=== PATIENT | female | born 1955 | race Caucasian/White ===

== ENCOUNTER 2018-11-20 14:39 | Outpatient (RCR) | payer OTHER, SELFPAY | END 2018-12-06 23:59 | disposition home or self-care (01) | LOC: CR 14:39 | PROVIDERS: PCP Nurse Practitioner; Visit Provider Family Medicine | DX: I25.2 Old myocardial infarction (principal); Z51.89 Encounter for other specified aftercare ==

== ENCOUNTER 2018-12-17 01:55 | Outpatient (CLI) | payer OTHER, SELFPAY ==
--- NOTE | 2018-12-17 11:51 | DI.US_ITS ---
SYMPTOMS/DIAGNOSIS: LEFT CAROTID BRUIT, R09.89 CAROTID ULTRASOUND: Routine examination. On the right, mild plaque is seen in the bulb/external carotid artery/internal carotid artery junction. No hemodynamically significant velocity elevations are present on the right. The right vertebral artery is antegrade. On the left, there is a small amount of calcific plaque seen in the carotid bulb. No hemodynamically significant velocity elevations are present. The left vertebral artery is antegrade. IMPRESSION: No evidence of hemodynamically significant cervical carotid artery stenosis.
== END 2018-12-17 02:15 ==
PROVIDERS: PCP Nurse Practitioner; Visit Provider Nurse Practitioner Family
DX: R09.89 Other specified symptoms and signs involving the circulatory and respiratory systems (principal)
CPT/HCPCS: 93880

== ENCOUNTER 2019-01-04 12:53 | Outpatient (RCR) | payer OTHER, SELFPAY | END 2019-01-06 23:59 | disposition home or self-care (01) | LOC: CR 12:53 | PROVIDERS: PCP Nurse Practitioner; Visit Provider Family Medicine | DX: I25.2 Old myocardial infarction (principal); Z51.89 Encounter for other specified aftercare | CPT/HCPCS: S9472 ==

== ENCOUNTER 2019-02-04 10:00 | Outpatient (RCR) | payer OTHER, SELFPAY | END 2019-02-05 23:59 | disposition home or self-care (01) | LOC: CR 10:00 | PROVIDERS: PCP Nurse Practitioner; Visit Provider Family Medicine | DX: I25.2 Old myocardial infarction (principal); Z51.89 Encounter for other specified aftercare | CPT/HCPCS: S9472 ==

== ENCOUNTER 2019-03-06 07:00 | Outpatient (RCR) | payer OTHER, SELFPAY | END 2019-03-08 23:59 | disposition home or self-care (01) | LOC: CR 07:00 | PROVIDERS: PCP Nurse Practitioner; Visit Provider Family Medicine | DX: I25.2 Old myocardial infarction (principal); Z51.89 Encounter for other specified aftercare | CPT/HCPCS: S9472 ==

== ENCOUNTER 2019-03-25 09:00 | Outpatient (RCR) | payer OTHER, SELFPAY | END 2019-04-07 23:59 | disposition home or self-care (01) | LOC: CR 09:00 | PROVIDERS: PCP Nurse Practitioner; Visit Provider Family Medicine | DX: I25.2 Old myocardial infarction (principal); Z51.89 Encounter for other specified aftercare | CPT/HCPCS: S9472 ==

== ENCOUNTER 2019-06-29 00:41 | Outpatient (CLI) | payer OTHER, SELFPAY ==
[2019-06-29 11:22] LABS: ALT 21 U/L (14-59); AST 12 U/L (15-37); Albumin 3.6 g/dL (3.4-5.0); Alkaline Phosphatase 103 U/L (46-116); Bilirubin, Direct 0.11 mg/dL (0.00-0.20); Bilirubin, Total 0.4 mg/dL (0.2-1.0); Total Protein 7.4 g/dL (6.4-8.2)
[2019-06-29 11:34] LABS: Calculated LDL 22 mg/dL; Cholesterol 89 mg/dL (50-200); HDL Cholesterol 46 mg/dL (40-60); Triglyceride 105 mg/dL (30-150)
== END 2019-06-29 01:01 ==
PROVIDERS: PCP Nurse Practitioner; Visit Provider Nurse Practitioner Family
DX: E78.2 Mixed hyperlipidemia (principal)
CPT/HCPCS: 36415; 80061; 80076

== ENCOUNTER 2019-07-10 07:22 | Outpatient (CLI) | payer OTHER, SELFPAY ==
--- NOTE | 2019-07-10 09:53 | DI.US_ITS ---
EXAM: US CAROTID CLINICAL HISTORY: R09.89 LT CAROTID BRUIT, HX OF CAD, HTN, HLD. TECHNIQUE: Ultrasound carotids performed using grayscale, color-flow, and spectral Doppler imaging. COMPARISON: US carotid from 12/17/2018 FINDINGS: RIGHT CAROTID ARTERY: Plaque: Minimal. Velocity elevation: None. LEFT CAROTID ARTERY: Plaque: Mild calcific plaque in the left carotid bulb. Velocity elevation: None. VERTEBRAL ARTERIES: Antegrade flow. IMPRESSION: No evidence for hemodynamically significant carotid stenosis. Criteria for Carotid Stenosis: Normal: ICA PSV <125 cm/s no plaque or intimal thickening is visible. <50% stenosis: ICA PSV <125 cm/s and plaque or intimal thickening is visible. 50-69% stenosis: ICA PSV is 125-250 cm/s and plaque is visible. >70% stenosis to near occlusion: ICA PSV >250 cm/s with visible plaque and luminal narrowing.
== END 2019-07-10 07:42 ==
PROVIDERS: PCP Nurse Practitioner; Visit Provider Nurse Practitioner Family
DX: R09.89 Other specified symptoms and signs involving the circulatory and respiratory systems (principal); I25.10 Atherosclerotic heart disease of native coronary artery without angina pectoris; I10 Essential (primary) hypertension; E78.5 Hyperlipidemia, unspecified
CPT/HCPCS: 93880

== ENCOUNTER 2019-10-21 17:21 | Outpatient (REF) | payer OTHER, SELFPAY ==
[2019-10-21 18:43] LABS: Microalb ug/mg Crea 6.5 ug/mg Cr
== END 2019-10-21 17:41 ==
LOC: NCHCN 17:21
PROVIDERS: PCP Nurse Practitioner; Visit Provider Nurse Practitioner
DX: E11.9 Type 2 diabetes mellitus without complications (principal)
CPT/HCPCS: 82043; 82570

== ENCOUNTER 2019-12-20 02:05 | Outpatient (CLI) | payer OTHER, SELFPAY ==
--- NOTE | 2019-12-20 15:27 | DI.MAMMO_ITS ---
EXAM: MG MAMMO SCREENING CLINICAL HISTORY: SCREENING, Z12.39 TECHNIQUE: Bilateral full field digital CC and MLO mammographic images were obtained with 3D tomosyn thesis and utilizing computer aided detection (CAD). COMPARISON: Available for comparison. FINDINGS: Masses/Architectural Distortion: None seen. Microcalcifications: No suspicious pleomorphic-type are seen. Skin Thickening/Nipple Retraction: None. IMPRESSION: 1. No significant interval change with no specific features of malignancy noted. 2. Unless there is more urgent need, screening mammography is recommended, as per [employer] guidelines. BI-RADS Cat 1 - Negative Breast Density - Category B - Scattered areas of fibroglandular density A negative radiographic report should not delay biopsy if a dominant or clinically suspicious mass is present. Up to ten percent of cancers are not identified on mammography. A negative report may reinforce clinical impression. Adenosis and dense breasts may obscure an underlying neoplasm. False positive reports average 6 to 10%. Patient will receive a letter notifying them of these results.
== END 2019-12-20 02:25 ==
PROVIDERS: PCP Nurse Practitioner; Visit Provider Nurse Practitioner
DX: Z12.31 Encounter for screening mammogram for malignant neoplasm of breast (principal)
CPT/HCPCS: 77063; 77067

== ENCOUNTER 2020-04-20 17:43 | Outpatient (REF) | payer OTHER, SELFPAY ==
[2020-04-20 19:33] LABS: ALT 28 U/L (14-59); AST 15 U/L (15-37); Albumin 4.1 g/dL (3.4-5.0); Alkaline Phosphatase 99 U/L (46-116); Anion Gap 11.4 mmol/L (3-11); BUN 12 mg/dL (7-18); Bilirubin, Total 0.5 mg/dL (0.2-1.0); CO2 25.6 mmol/L (21.0-32.0); CREATININE 0.65 mg/dL (0.55-1.02); Calcium 9.8 mg/dL (8.5-10.1); Calculated LDL 33 mg/dL (<100); Chloride 102 mmol/L (98-107); Cholesterol 116 mg/dL (<200); Glucose 86 mg/dL (74-106); HDL Cholesterol 43 mg/dL (40-60); Potassium 4.4 mmol/L (3.5-5.1); Sodium 139 mmol/L (136-145); Total Protein 7.9 g/dL (6.4-8.2); Triglyceride 200 mg/dL (<150)
[2020-04-20 19:42] LABS: Hemoglobin A1C 6.6 % (3.8-5.6)
== END 2020-04-20 18:03 ==
LOC: NCHCN 17:43
PROVIDERS: PCP Nurse Practitioner; Visit Provider Nurse Practitioner
DX: I10 Essential (primary) hypertension (principal); E78.5 Hyperlipidemia, unspecified; E11.9 Type 2 diabetes mellitus without complications
CPT/HCPCS: 80053; 80061; 83036

== ENCOUNTER 2020-08-11 14:04 | Outpatient (CLI) | payer OTHER, SELFPAY ==
--- NOTE | 2020-08-11 13:45 | DI.RAD_ITS ---
EXAM: XR SHOULDER RT COMPLETE 2+V CLINICAL HISTORY: Shoulder pain. TECHNIQUE: 2D digital imaging was performed. COMPARISON: No exams were available for comparison FINDINGS: BONES: No acute fracture is present. No bony destructive lesion is seen. JOINTS: No dislocation present. Mild degenerative changes are seen at the glenohumeral and acromiocla vicular joints. SOFT TISSUE: Normal. IMPRESSION: Mild degenerative changes of the right shoulder. DATA REPOSITORY: RADIATION DOSE DELIVERED:
== END 2020-08-11 14:24 ==
PROVIDERS: PCP Nurse Practitioner; Referring Provider Nurse Practitioner; Visit Provider Student in an Organized Health Care Education/Training Program
DX: M19.011 Primary osteoarthritis, right shoulder (principal)
CPT/HCPCS: 73030

== ENCOUNTER 2020-12-07 16:09 | Outpatient (REF) | payer OTHER, SELFPAY ==
[2020-12-07 19:37] LABS: COMMENT (LAB VIEW ONLY) 59.25 mg/dL; Microalb ug/mg Crea 9.1 ug/mg Cr
== END 2020-12-07 16:10 | disposition home or self-care (01) ==
LOC: NCHCN 16:09
PROVIDERS: PCP Nurse Practitioner; Visit Provider Nurse Practitioner
DX: E11.9 Type 2 diabetes mellitus without complications (principal)
CPT/HCPCS: 82043; 82570

== ENCOUNTER 2021-05-28 02:36 | Outpatient (CLI) | payer OTHER, SELFPAY ==
[2021-05-28 10:51] LABS: Calculated LDL 21 mg/dL (<100); Cholesterol 97 mg/dL (<200); HDL Cholesterol 41 mg/dL (40-60); Triglyceride 175 mg/dL (<150)
== END 2021-05-28 02:37 | disposition home or self-care (01) ==
LOC: LBO 02:36
PROVIDERS: PCP Nurse Practitioner; Visit Provider Nurse Practitioner Family
DX: E78.2 Mixed hyperlipidemia (principal)
CPT/HCPCS: 36415; 80061

== ENCOUNTER 2021-12-15 04:24 | Outpatient (CLI) | payer OTHER, SELFPAY ==
[2021-12-15 11:04] LABS: ALT 33 U/L (14-59); AST 16 U/L (15-37); Albumin 3.5 g/dL (3.4-5.0); Alkaline Phosphatase 110 U/L (46-116); Bilirubin, Direct 0.1 mg/dL (0.0-0.2); Bilirubin, Total 0.3 mg/dL (0.2-1.0); Total Protein 7.5 g/dL (6.4-8.2)
[2021-12-15 11:17] LABS: Calculated LDL 41 mg/dL (<100); Cholesterol 126 mg/dL (<200); HDL Cholesterol 41 mg/dL (40-60); Triglyceride 223 mg/dL (<150)
== END 2021-12-15 04:25 | disposition home or self-care (01) ==
LOC: LBO 04:24
PROVIDERS: PCP Nurse Practitioner; Visit Provider Nurse Practitioner Family
DX: E78.2 Mixed hyperlipidemia (principal)
CPT/HCPCS: 36415; 80061; 80076

== ENCOUNTER 2022-02-08 17:40 | Outpatient (REF) | payer OTHER, SELFPAY ==
[2022-02-08 17:52] LABS: Abs Immature Grans 0.04 10^3/uL (0.0-0.06); Absolute Basophil Count 0.04 10^3/uL (0.0-0.2); Absolute Eosinophil Count 0.27 10^3/uL (0.0-0.7); Absolute Lymphocyte Count 1.79 10^3/uL (1.2-3.4); Absolute Neutrophil Count 8.08 10^3/uL (1.2-6.7); Basophils % 0.4; Eosinophils % 2.5; HCT 42.7 % (36.0-46.0); HGB 13.5 g/dL (11.2-15.7); Immature Grans % 0.4; Lymphocytes % 16.4; MCH 28.2 pg (27.0-33.0); MCHC 31.6 % (32.0-36.0); MCV 89 fL (80-95); MPV 10.9 fL (8.0-11.0); Monocytes % 6.4; Neutrophils % 73.9; Platelet Count 343 10^3/uL (130-400); RBC 4.79 10^6/uL (3.93-5.22); RDW-SD 45.5 fL; WBC 10.93 10^3/uL (4.4-10.8)
[2022-02-08 19:16] LABS: ALT 28 U/L (14-59); AST 17 U/L (15-37); Albumin 3.7 g/dL (3.4-5.0); Alkaline Phosphatase 111 U/L (46-116); Anion Gap 8.3 mmol/L (3-11); BUN 12 mg/dL (7-18); Bilirubin, Total 0.4 mg/dL (0.2-1.0); CO2 29.7 mmol/L (21.0-32.0); CREATININE 0.9 mg/dL (0.55-1.02); Calcium 9.1 mg/dL (8.5-10.1); Chloride 101 mmol/L (98-107); Glucose 173 mg/dL (74-106); Potassium 4.5 mmol/L (3.5-5.1); Sodium 139 mmol/L (136-145); Total Protein 7.7 g/dL (6.4-8.2)
== END 2022-02-08 17:41 | disposition home or self-care (01) ==
LOC: LBN 17:40
PROVIDERS: PCP Nurse Practitioner; Visit Provider Nurse Practitioner Family
DX: I10 Essential (primary) hypertension (principal); E78.5 Hyperlipidemia, unspecified; E11.9 Type 2 diabetes mellitus without complications; Z00.00 Encounter for general adult medical examination without abnormal findings
CPT/HCPCS: 80053; 85025

== ENCOUNTER → 2022-08-08 01:49 | Outpatient (CLI) | payer MEDICARE, SELFPAY ==
--- NOTE | 2022-08-08 | DI.MAMMO_ITS ---
Exam(s) MAMMO SCREENING EXAM: MAMMO SCREENING CLINICAL HISTORY: SCREENING, Z12.39. TECHNIQUE: Bilateral full field digital CC and MLO mammographic images were obtained with 3D tomosyn thesis and utilizing computer aided detection (CAD). COMPARISON: Prior mammograms were reviewed. FINDINGS: No new findings in the right breast. Asymmetric densities anterior in left breast are unchanged from prior studies. There are no new spiculated masses nor malignant appearing microcalcification groups. There is no significant architectural distortion nor skin thickening-retraction. IMPRESSION: No radiographic evidence of malignancy. BI-RADS Category 1 - Negative Breast Density - Category B - Scattered areas of fibroglandular density Breast density Category C or D implies that the patient has dense breast tissue. Dense breast tissue can make it harder to find cancer on a mammogram. Dense breast tissue is also associated with an incr eased risk of breast cancer. This information about the result of the mammogram report was provided to the patient to raise their awareness. Use this report when you speak with the patient about their risks for breast cancer, which includes their family history. At that time, you may recommend additional screening tests (Ultrasoun d or MRI) as these tests may add significant information. A negative radiographic report should not delay biopsy if a dominant or clinically suspicious mass is present. Up to ten percent of cancers are not identified on mammography. A negative report may reinforce clinical impression. Adenosis and dense breasts may obscure an underlying neoplasm. False positive reports average 6 to 10%. Patient will receive a letter notifying them of these results.
== END ==
PROVIDERS: PCP Nurse Practitioner; Visit Provider Nurse Practitioner Family
DX: Z12.31 Encounter for screening mammogram for malignant neoplasm of breast (principal); N60.82 Other benign mammary dysplasias of left breast
CPT/HCPCS: 77063; 77067

== ENCOUNTER 2023-08-02 19:32 | Outpatient (REF) | payer MEDICARE, SELFPAY ==
[2023-08-02 19:50] LABS: Abs Immature Grans 0.04 10^3/uL (0.0-0.06); Absolute Basophil Count 0.04 10^3/uL (0.0-0.2); Absolute Eosinophil Count 0.14 10^3/uL (0.0-0.7); Absolute Lymphocyte Count 1.35 10^3/uL (1.2-3.4); Absolute Monocyte Count 0.45 10^3/uL (0.1-0.8); Absolute Neutrophil Count 5.22 10^3/uL (1.2-6.7); Basophils % 0.6; Eosinophils % 1.9; HCT 43.3 % (36.0-46.0); HGB 14.3 g/dL (11.2-15.7); Immature Grans % 0.6; Lymphocytes % 18.6; MCH 29.1 pg (27.0-33.0); MCV 88 fL (80-95); MPV 10.2 fL (8.0-11.0); Monocytes % 6.2; Neutrophils % 72.1; Platelet Count 355 10^3/uL (130-400); RBC 4.92 10^6/uL (3.93-5.22); RDW 13.1 % (11.7-14.6); RDW-SD 41.8 fL; WBC 7.24 10^3/uL (4.4-10.8)
[2023-08-02 20:18] LABS: ALT 62 U/L (14-59); AST 38 U/L (15-37); Albumin 3.8 g/dL (3.4-5.0); Alkaline Phosphatase 123 U/L (46-116); Anion Gap 11.3 mmol/L (3-11); BUN 10 mg/dL (7-18); Bilirubin, Total 0.3 mg/dL (0.2-1.0); CO2 24.7 mmol/L (21.0-32.0); CREATININE 0.8 mg/dL (0.55-1.02); Calcium 9.4 mg/dL (8.5-10.1); Chloride 100 mmol/L (98-107); Cholesterol 295 mg/dL (<200); Estimated GFR 80.71 (mL/min/1.73m2); Glucose 266 mg/dL (74-106); HDL Cholesterol 52 mg/dL (40-60); Potassium 4.3 mmol/L (3.5-5.1); Sodium 136 mmol/L (136-145); TSH (W/Ref FT4) 1.94 uIU/mL (0.36-3.74); Total Protein 8.5 g/dL (6.4-8.2); Triglyceride 556 mg/dL (<150)
[2023-08-02 20:29] LABS: LDL CHOLESTEROL 77 mg/dL (<100)
== END 2023-08-02 19:33 | disposition home or self-care (01) ==
LOC: NCHCN 19:32
PROVIDERS: PCP Nurse Practitioner; Visit Provider Nurse Practitioner Family
DX: E11.9 Type 2 diabetes mellitus without complications (principal); I10 Essential (primary) hypertension; E78.5 Hyperlipidemia, unspecified
CPT/HCPCS: 80053; 80061; 83721; 84443; 85025

== ENCOUNTER 2023-09-03 15:33 | Emergency (ER) | payer MEDICARE, SELFPAY ==
[2023-09-03] VITALS (39 sets, daily range): BP systolic 87–147; BP diastolic 24–78; PULSE 69–102; RESP 8–27; TEMP 36.5; O2SAT 93–97
--- NOTE | 2023-09-03 15:30 | RT.EKG_ITS ---
APPROVED REPORT Exam: Resting ECG Reason for Exam: chest pain Patient Location: E HR:91 bpm ECG Measurements Heart Rate 91 AXIS OR 178 P 18 QRSd 82 QRS 5 QT 344 T 30 QTc 425 Conclusion Sinus rhythm...normal P axis, V-rate 60- 99 Inferior infarct, old...Q >35mS, II III aVF Narrow complex normal sinus rhythm at a rate of 91. Normal axis. Intervals within normal limits. T wave flattening in aVL and inferior leads. Poor R wave progression. No prior for comparison. No a cute injury pattern.
--- NOTE | 2023-09-03 15:45 | DI.RAD_ITS ---
Exam(s) XR CHEST 2V PA LATERAL EXAM: XR CHEST 2V PA LATERAL CLINICAL HISTORY: epigastric/chest pain TECHNIQUE: 2D digital imaging was performed of the chest. Two images were obtained. PA and lateral views were obtained. COMPARISON: No exams were available for comparison FINDINGS: MEDIASTINUM: Normal. HEART: Normal. PULMONARY VASCULATURE: Normal. LUNGS: Clear. PLEURAL SPACE: No pleural effusion or pneumothorax. BONE:Within normal limits for the patient's age. OTHER FINDINGS:Normal. IMPRESSION: No acute pulmonary findings. DATA REPOSITORY: RADIATION DOSE DELIVERED:
--- NOTE | 2023-09-03 15:57 | ED.GENADUL_ITS ---
Discharge Plan Disposition Patient Disposition: Home Condition: Improving Discharge Details Chief Complaint: Chest/Rib Clinical Impression: Epigastric abdominal pain Primary Care Provider: Katelynn Hayes ED Provider: Carl Hector Home Meds and New Rx's Prescriptions: No Action metoprolol succinate 50 mg tablet extended release 24 hr 50 mg PO DAILY ergocalciferol (vitamin D2) 400 UNIT tablet 800 units PO DAILY amlodipine [Norvasc] 5 MG tablet 10 mg PO DAILY aspirin [Aspir-81] 81 MG tablet,delayed release (DR/EC) 81 mg PO DAILY fish oil-dha-epa 1 EACH capsule 1 ea PO DAILY metformin 500 mg tablet 500 mg PO BID metformin 500 mg tablet extended release 24 hr 1,000 mg PO 2XD Patient Comments: TAKE 2 TABLET BY MOUTH TWICE DAILY Ozempic 0.25 mg or 0.5 mg (2 mg/3 mL) pen injector 0.25 mg SUBCUT .COMPLEX Rx Instructions: 0.25 mg subcutaneously once a week (monday); atorvastatin 40 mg tablet 40 mg PO DAILY Patient Comments: TAKE 1 TABLET BY MOUTH EVERY NIGHT Discharge Instructions Instructions: Epigastric Pain (ED) Additional Instructions: Please follow-up closely with your primary care physician. Return to the emergency department for any worsening symptoms. Medical Decision Making 68-year-old female history of diabetes obesity hypertension hyperlipidemia presents with epigastric abdominal discomfort since Thanksgiving believes she may have eaten a large piece of turkey with a bone inside, has foreign body sensation in lower esophagus, no nausea no vomiting however has had to eat smaller solid food since this event is able to tolerate liquids, no regurgitation or vomiting. No respiratory symptoms. No radiation of discomfort. Nonexertional in nature. Afebrile nontoxic mildly tachycardic on arrival likely related to discomfort. EKG normal sinus rhythm nonischemic. Consider esophageal foreign body versus ACS versus gastritis versus gas versus enteritis lower suspicion for esophageal perforation or intestinal perforation given history and physical. Will obtain screening labs troponin EKG chest x-ray trial of effervescent solution and Zofran. Will load with aspirin. Close reassessment 18: 43 patient was comfortably feeling better after effervescent bubbles. No further chest pain labs and imaging unremarkable. Patient will follow-up with her primary care physician. Given strict return precautions HPI General Date/Time Provider Initiated Documentation: 09/03/23 15:38 . HPI Narrative: 68-year-old female history of obesity diabetes hyperlipidemia hypertension presents with epigastric and anterior chest discomfort that began immediately after eating a large piece of turkey on Thanksgiving, believes she may have eaten a bone; no shortness of breath fever cough chills or radiation of discomfort. Has been able to eat and drink since then however must eat smaller bites than normal. Related Data Home Medications Medication Instructions Recorded Confirmed amlodipine 5 mg tablet (Norvasc) 10 mg PO DAILY 01/30/17 09/03/23 aspirin 81 mg tablet,delayed 81 mg PO DAILY 01/30/17 09/03/23 release (Aspir-) ergocalciferol (vitamin D2) 10 mcg 800 units PO DAILY 01/30/17 09/03/23 (400 unit) tablet fish oil-dha-epa 1,200 mg-144 1 ea PO DAILY 01/30/17 09/03/23 mg-216 mg capsule metformin 500 mg tablet 500 mg PO BID 08/11/20 09/03/23 metoprolol succinate 50 mg 50 mg PO DAILY 08/11/20 09/03/23 tablet,extended release 24 hr atorvastatin 40 mg tablet 40 mg PO DAILY 09/03/23 09/03/23 metformin 500 mg tablet,extended 1,000 mg PO 2XD 09/03/23 09/03/23 release 24 hr semaglutide 0.25 mg or 0.5 mg (2 0.25 mg subcut .COMPLEX 09/03/23 09/03/23 mg/3 mL) subcutaneous pen injector (Ozempic) Allergies Allergy/AdvReac Type Severity Reaction Status Date / Time feathers Allergy Verified 09/03/23 16:09 house dust Allergy Verified 09/03/23 16:09 General Stated Complaint: Chest/Rib MIKE: 3 Review of Systems Narrative: Review of Systems Constitutional: negative Eyes: negative ENT: negative Cardiovascular: negative Respiratory: negative Gastrointestinal: Epigastric discomfort : negative Musculoskeletal: negative Skin: negative Neurologic: negative Psych: negative PFSH All Active Problems (Updated 09/03/23 @ 18:44 by Carl Hector MD) Epigastric abdominal pain (Acute) Right rotator cuff tendinitis (Acute) Impingement syndrome of right shoulder (Acute) Bursitis of right shoulder (Acute ~10/2018) Medical History (Updated 09/03/23 @ 18:44 by Carl Hector MD) Obesity Hypertension Hyperlipemia Diabetes Palpitation Diverticular disease Surgical History (Updated 07/25/18 @ 14:[address] [facility] [address]) section x 2 Appendectomy Social History Smoking/Tobacco Use Status: Never Smoking risk assessment performed?: Yes Alcohol Intake: never Substance use type: does not use Current gender identity: female Do you feel safe at home: Yes Do you feel safe in your relationship?: Yes Exam Narrative Exam Narrative: Physical Examination General: alert, awake, cooperative, resting comfortably, no acute distress HEENT: normocephalic, atraumatic; PERRL, EOM intact, conjunctiva normal; no nasal discharge; moist mucous membranes, oral and pharyngeal mucosa normal, tolerating secretions Neck: supple, trachea midline; full ROM Chest: normal to inspection Respiratory: normal respiratory effort, speaking in full sentences, clear to auscultation, no wheezing, rales or rhonchi Cardiac: regular rate, regular rhythm, S1S2 intact, no murmurs rubs or gallops GI: abdomen soft, non-tender, non-distended; no palpable mass or hepatosplenomegaly Skin: no lesions, rashes or trauma appreciated Neuro: AAOx3, normal speech, moving all extremities Psych: Appropriate mood and affect Course Vital Signs Vital signs: Vital Signs Temperature 36.5 C 09/03/23 15:38 Pulse 102 H 09/03/23 15:38 Respiratory Rate 18 09/03/23 15:38 Blood Pressure 113/78 09/03/23 15:38 Pulse Oximetry 97 09/03/23 15:38 Temperature 36.5 C 09/03/23 15:38 Temperature Source Temporal Artery Scan 09/03/23 15:38 Pulse 102 H 09/03/23 15:38 Respiratory Rate 18 09/03/23 15:38 Respiratory Effort Normal 09/03/23 15:43 Blood Pressure 113/78 09/03/23 15:38 Pulse Oximetry 97 09/03/23 15:38 Oxygen Delivery Method Room Air 09/03/23 15:38 Oxygen Flow Rate 0 09/03/23 15:38 Pain Level 2 09/03/23 15:38
[2023-09-03] MEDS: Ondansetron 4 MG/2 ML VIAL IVP (15:59)
[2023-09-03] MEDS: Aspirin 81 MG CHEW 324 MG CH (15:59)
[2023-09-03] MEDS: Normal Saline 500 ML 1000 ML IV (15:59)
[2023-09-03 16:02] LABS: Abs Immature Grans 0.04 10^3/uL (0.0-0.06); Absolute Basophil Count 0.04 10^3/uL (0.0-0.2); Absolute Eosinophil Count 0.09 10^3/uL (0.0-0.7); Absolute Lymphocyte Count 1.13 10^3/uL (1.2-3.4); Absolute Monocyte Count 0.95 10^3/uL (0.1-0.8); Absolute Neutrophil Count 9.51 10^3/uL (1.2-6.7); Basophils % 0.3; Eosinophils % 0.8; HCT 43.1 % (36.0-46.0); HGB 14.5 g/dL (11.2-15.7); Immature Grans % 0.3; Lymphocytes % 9.6; MCH 29.3 pg (27.0-33.0); MCHC 33.6 % (32.0-36.0); MCV 87 fL (80-95); MPV 9.4 fL (8.0-11.0); Monocytes % 8.1; Neutrophils % 80.9; Platelet Count 276 10^3/uL (130-400); RBC 4.95 10^6/uL (3.93-5.22); RDW 13.3 % (11.7-14.6); RDW-SD 41.9 fL; WBC 11.76 10^3/uL (4.4-10.8)
[2023-09-03 16:14] LABS: Lipase 41 U/L (16-77)
[2023-09-03 16:16] LABS: PTT Activated 27.5 sec (23.6-32.8); Prothrombin Time 10.4 sec (9.1-11.1)
[2023-09-03 16:23] LABS: ALT 30 U/L (14-59); AST 17 U/L (15-37); Albumin 3.6 g/dL (3.4-5.0); Alkaline Phosphatase 101 U/L (46-116); Anion Gap 10.4 mmol/L (3-11); BUN 9 mg/dL (7-18); Bilirubin, Total 0.7 mg/dL (0.2-1.0); CO2 26.6 mmol/L (21.0-32.0); CREATININE 0.9 mg/dL (0.55-1.02); Calcium 9.8 mg/dL (8.5-10.1); Chloride 98 mmol/L (98-107); Estimated GFR 70.07 (mL/min/1.73m2); Glucose 173 mg/dL (74-106); Sodium 135 mmol/L (136-145); Total Protein 8.9 g/dL (6.4-8.2); Troponin I < 50 ng/L (<or=60)
--- NOTE | 2023-09-03 16:53 | DI.VRAD_ITS ---
PROCEDURE INFORMATION: Exam: XR Chest Exam date and time: 09/03/2023 4:23 PM Age: 68 years old Clinical indication: Other: Epigastic, chest pain TECHNIQUE: Imaging protocol: Radiologic exam of the chest. Views: 2 views. COMPARISON: No relevant comparison study. FINDINGS: Tubes, catheters and devices: EKG wires overlie the chest. Lungs: Unremarkable. No consolidation. Pleural spaces: Unremarkable. No pleural effusion. No pneumothorax. Heart/Mediastinum: Unremarkable. No cardiomegaly. Bones/joints: Multilevel degenerative changes of the spine. IMPRESSION: No acute cardiopulmonary findings. Dictated and Authenticated by: Shahida Toney MD. Ordering:LILIANA Henry MD
== END 2023-09-03 19:04 | disposition home or self-care (01) ==
PROVIDERS: Emergency Provider Emergency Medicine; PCP Nurse Practitioner
DX: R10.13 Epigastric pain (principal); R09.A2 Foreign body sensation, throat; I10 Essential (primary) hypertension; E78.5 Hyperlipidemia, unspecified; E11.9 Type 2 diabetes mellitus without complications; E66.9 Obesity, unspecified; Z68.42 Body mass index [BMI] 45.0-49.9, adult; Z79.82 Long term (current) use of aspirin; Z79.899 Other long term (current) drug therapy; Z79.85 Long-term (current) use of injectable non-insulin antidiabetic drugs; Z79.84 Long term (current) use of oral hypoglycemic drugs
CPT/HCPCS: 80053; 83690; 93005; 96361; 96374; 99285; 71046; 84484; 85025; 85610; 85730; 93010; 99284; J2405

== ENCOUNTER 2023-11-21 17:57 | Outpatient (REF) | payer MEDICARE, SELFPAY ==
[2023-11-21 18:49] LABS: Hemoglobin A1C 6.4 % (<5.7)
== END 2023-11-21 17:58 | disposition home or self-care (01) ==
LOC: NCHCN 17:57
PROVIDERS: PCP Nurse Practitioner Family; Visit Provider Nurse Practitioner Family
DX: E11.9 Type 2 diabetes mellitus without complications (principal)
CPT/HCPCS: 83036

== ENCOUNTER 2024-02-27 14:31 | Outpatient (REF) | payer MEDICARE, SELFPAY ==
[2024-02-27 15:58] LABS: ALT 36 U/L (14-59); AST 20 U/L (15-37); Albumin 3.7 g/dL (3.4-5.0); Alkaline Phosphatase 88 U/L (46-116); Anion Gap 10.8 mmol/L (3-11); BUN 15 mg/dL (7-18); Bilirubin, Total 0.4 mg/dL (0.2-1.0); CO2 27.2 mmol/L (21.0-32.0); CREATININE 0.8 mg/dL (0.55-1.02); Calcium 9.5 mg/dL (8.5-10.1); Calculated LDL 33 mg/dL (<100); Chloride 104 mmol/L (98-107); Cholesterol 126 mg/dL (<200); Estimated GFR 80.71 (mL/min/1.73m2); Glucose 139 mg/dL (74-106); HDL Cholesterol 50 mg/dL (40-60); Potassium 4.4 mmol/L (3.5-5.1); Sodium 142 mmol/L (136-145); Total Protein 8.1 g/dL (6.4-8.2); Triglyceride 219 mg/dL (<150)
== END 2024-02-27 14:32 | disposition home or self-care (01) ==
LOC: NCHCN 14:31
PROVIDERS: PCP Nurse Practitioner Family; Visit Provider Nurse Practitioner Family
DX: E78.5 Hyperlipidemia, unspecified (principal); I10 Essential (primary) hypertension
CPT/HCPCS: 80053; 80061

== ENCOUNTER 2024-04-07 20:09 | Emergency (ER) | payer MEDICARE, SELFPAY ==
[2024-04-07 20:11] VITALS: BP 193/75; PULSE 103; RESP 16; TEMP 36.2; O2SAT 98
[2024-04-07] MEDS: Doxycycline Hyclate 100 MG, 2 CAPS/BTL PO (22:21)
--- NOTE | 2024-04-08 17:03 | NUR.NOTE ---
Nursing Note: Received call from Pt that her prescription was not received by the Pharmacy. Verbal orders called into Brittany at [facility] in [place], [place]. Pharmacy states they will get it filled before they close this evening.
--- NOTE | 2024-04-08 20:13 | W.ED.GENAD ---
Discharge Plan Disposition Patient Disposition: Home Discharge Details Clinical Impression: Cellulitis Primary Care Provider: JILLIAN BUSH ED Provider: Cyndy Cardoso Home Meds and New Rx's Prescriptions: New doxycycline hyclate 100 mg capsule 100 mg PO BID Qty: 20 0RF Continued metoprolol succinate 50 mg tablet extended release 24 hr 50 mg PO DAILY ergocalciferol (vitamin D2) 400 UNIT tablet 800 units PO DAILY amlodipine [Norvasc] 5 MG tablet 10 mg PO DAILY aspirin [Aspir-81] 81 MG tablet,delayed release (DR/EC) 81 mg PO DAILY fish oil-dha-epa 1 EACH capsule 1 ea PO DAILY metformin 500 mg tablet extended release 24 hr 1,000 mg PO 2XD Patient Comments: TAKE 2 TABLET BY MOUTH TWICE DAILY Ozempic 0.25 mg or 0.5 mg (2 mg/3 mL) pen injector 0.25 mg SUBCUT .COMPLEX Rx Instructions: 0.25 mg subcutaneously once a week (monday); rosuvastatin 20 mg tablet 20 mg PO DAILY Patient Comments: TAKE 1 TABLET BY MOUTH AT BEDTIME Discharge Instructions Instructions: Cellulitis (Skin Infection), Adult ED Additional Instructions: Warm compresses, 5 minutes every hour while awake Take the antibiotic as prescribed, yogurt daily while on antibiotic Take Tylenol as needed for pain Return with spreading redness, fever, chills, uncontrolled blood sugar, or should any new concerns arise, recommend recheck in 48 hours with your primary care physician Referrals: JILLIAN BUSH, [employer] [Primary Care Provider] - 2 days Discharge Data Discharge Date/Time-TO BE ENTERED AT DEPARTURE: 04/07/24 22:22 HPI General Date/Time Provider Initiated Documentation: 04/07/24 21:28. HPI Narrative: This elmer 69-year-old female presents with a possible insect bite x 2 to the left ear. States she had a bite last week was itchy at first felt another bite several days ago. Now the area is quite tender. She actually [place] Something Sting Her. She Denies Any Difficulty Swallowing, Chest Pain, Shortness of Breath. She States That It Has Been Worse in the past 2 Days Which Is Why She Presents. She States Her Blood Sugars Yesterday Were between 110 and 120. She Denies Any Difficulty Hearing or Drainage from Site. Denies Fever or Chills. Related Data Home Medications Medication Instructions Recorded Confirmed amlodipine 5 mg tablet (Norvasc) 10 mg PO DAILY 01/30/17 04/07/24 aspirin 81 mg tablet,delayed 81 mg PO DAILY 01/30/17 04/07/24 release (Aspir-) ergocalciferol (vitamin D2) 10 mcg 800 units PO DAILY 01/30/17 04/07/24 (400 unit) tablet fish oil-dha-epa 1,200 mg-144 1 ea PO DAILY 01/30/17 04/07/24 mg-216 mg capsule metoprolol succinate 50 mg 50 mg PO DAILY 08/11/20 04/07/24 tablet,extended release 24 hr metformin 500 mg tablet,extended 1,000 mg PO 2XD 09/03/23 04/07/24 release 24 hr semaglutide 0.25 mg or 0.5 mg (2 0.25 mg subcut .COMPLEX 09/03/23 04/07/24 mg/3 mL) subcutaneous pen injector ([facility]) doxycycline hyclate 100 mg capsule 100 mg PO BID #20 caps 04/07/24 rosuvastatin 20 mg tablet 20 mg PO DAILY 04/07/24 04/07/24 Previous Rx's Medication Instructions Recorded doxycycline hyclate 100 mg capsule 100 mg PO BID #20 caps 04/07/24 Allergies Allergy/AdvReac Type Severity Reaction Status Date / Time feathers Allergy Wheezing Verified 04/07/24 20:16 house dust Allergy Wheezing Verified 04/07/24 20:16 General Stated Complaint: InsectBite MIKE: 4 Exam Narrative Exam Narrative: Alert and oriented 69-year-old female, left here with swelling and erythema, mid helix there is approximately 1 inch area of erythema and pustules. No fluctuance but firmness. No drainage or evidence of tympanic. Area involvement. No mastoid tenderness. No drainable abscess, crepitus no meningismus, no lymphadenopathy, cardiac rate rhythm regular, no respiratory distress Course Vital Signs Vital signs: Vital Signs Temperature 36.2 C L 04/07/24 20:11 Pulse 103 H 04/07/24 20:11 Respiratory Rate 16 04/07/24 20:11 Blood Pressure 193/75 H 04/07/24 20:11 Pulse Oximetry 98 04/07/24 20:11 Temperature 36.2 C L 04/07/24 20:11 Pulse 103 H 04/07/24 20:11 Respiratory Rate 16 04/07/24 20:11 Respiratory Effort Normal 04/07/24 20:17 Blood Pressure 193/75 H 04/07/24 20:11 Pulse Oximetry 98 04/07/24 20:11 Oxygen Delivery Method Room Air 04/07/24 20:11 Oxygen Flow Rate 0 04/07/24 20:11 Pain Level 3 04/07/24 20:11 Medical Decision Making Alert and oriented 69-year-old female presenting with possible staying to left ear worsening symptoms, concern for cellulitis. Blood sugar was checked given patient's history of diabetes and found to be 150 in the emergency department. Repeat pulse was 88, however patient's blood pressure remained elevated and she will need to have this rechecked in the next several weeks with her doctor. She is exhibiting no signs or symptoms consistent with acute hypertension. She will be started on doxycycline which will cover her for take etiology, secondary cellulitis after sustaining, staph or strep infection. Given her history of diabetes and erythema, my recommendation is a 48-hour recheck or earlier return should she develop systemic signs of illness which were reviewed with the patient. I did consider shingles, however I think this is less likely given the acuity and onset patient remembering and bite some sort of bite. Quality:SDOH Health Related Social Needs: No Data to Display PFSH All Active Problems (Updated 04/07/24 @ 22:03 by HAILEY Christensen) Cellulitis (Acute) Right rotator cuff tendinitis (Acute) Impingement syndrome of right shoulder (Acute) Bursitis of right shoulder (Acute ~10/2018) Medical History (Updated 04/07/24 @ 22:03 by HAILEY Christensen) Obesity Hypertension Hyperlipemia Diabetes Palpitation Diverticular disease Surgical History (Updated 07/25/18 @ 14:36 by [facility] [place]) section x 2 Appendectomy Social History Smoking/Tobacco Use Status: Never Smoking risk assessment performed?: Yes Alcohol Intake: never Substance use type: does not use Current gender identity: female Do you feel safe at home: Yes Do you feel safe in your relationship?: Yes
== END 2024-04-07 22:22 | disposition home or self-care (01) ==
PROVIDERS: Emergency Provider Physician Assistant; PCP Nurse Practitioner Family
DX: H60.12 Cellulitis of left external ear (principal)
CPT/HCPCS: 99283; 99284

== ENCOUNTER 2024-06-18 00:57 | Outpatient (CLI) | payer MEDICARE, SELFPAY ==
--- NOTE | 2024-06-18 | DI.MAMMO_ITS ---
Exam(s) MAMMO SCREENING EXAM: MAMMO SCREENING CLINICAL HISTORY: SCREENING, Z12.31 TECHNIQUE: Mammograms were interpreted according to the usual protocol including computer analysis w [employer] CAD system, tomosynthesis and C-view imaging. COMPARISON: 2015 through 2021 FINDINGS: The breasts are composed of mainly fatty density , Breast Density category A. No suspicious masses or suspicious microcalcifications are seen. No skin thickening or abnormal axillary lymph nodes are seen. There has been no significant change from prior exams. IMPRESSION: BI-RADS Category 1, Negative mammogram Yearly screening mammography is recommended. Breast Density - Category A, fatty density. A negative radiographic report should not delay biopsy if a dominant or clinically suspicious mass is present. Up to ten percent of cancers are not identified on mammography. A negative report may reinforce clinical impression. Adenosis and dense breasts may obscure an underlying neoplasm. False positive reports average 6 to 10%. Patient will receive a letter notifying them of these results.
== END 2024-06-18 01:17 ==
LOC: DI 00:58
PROVIDERS: PCP Nurse Practitioner Family; Visit Provider Nurse Practitioner Family
DX: Z12.31 Encounter for screening mammogram for malignant neoplasm of breast (principal)
CPT/HCPCS: 77063; 77067

== ENCOUNTER 2025-04-09 19:16 | Outpatient (REF) | payer MEDICARE, SELFPAY ==
[2025-04-09 21:04] LABS: Hemoglobin A1C 6.2 % (<5.7)
[2025-04-09 22:07] LABS: ALT 33 U/L (14-59); AST 20 U/L (15-37); Albumin 3.8 g/dL (3.4-5.0); Alkaline Phosphatase 98 U/L (46-116); Anion Gap 7.0 mmol/L (3-11); BUN 15 mg/dL (7-18); Bilirubin, Total 0.5 mg/dL (0.2-1.0); CO2 27.0 mmol/L (21.0-32.0); Calcium 9.4 mg/dL (8.5-10.1); Calculated LDL 34 mg/dL (<100); Chloride 103 mmol/L (98-107); Cholesterol 112 mg/dL (<200); Estimated GFR 69.20 (mL/min/1.73m2); Glucose 110 mg/dL (74-106); HDL Cholesterol 45 mg/dL (>or=50); Potassium 4.2 mmol/L (3.5-5.1); Sodium 137 mmol/L (136-145); Total Protein 8.4 g/dL (6.4-8.2); Triglyceride 168 mg/dL (<150)
== END 2025-04-09 19:17 | disposition home or self-care (01) ==
LOC: NCHCN 19:16
PROVIDERS: PCP Nurse Practitioner Family; Visit Provider Nurse Practitioner Family
DX: E11.9 Type 2 diabetes mellitus without complications (principal)
CPT/HCPCS: 80053; 80061; 83036

== ENCOUNTER 2025-07-16 18:13 | Outpatient (REF) | payer MEDICARE, SELFPAY ==
[2025-07-16 21:12] LABS: COMMENT (LAB VIEW ONLY) 78.30 mg/dL; Microalb ug/mg Crea 9.3 ug/mg Cr
== END 2025-07-16 18:14 | disposition home or self-care (01) ==
LOC: NCHCN 18:13
PROVIDERS: PCP Nurse Practitioner Family; Visit Provider Nurse Practitioner Family
DX: E11.9 Type 2 diabetes mellitus without complications (principal)
CPT/HCPCS: 82043; 82570